=== PATIENT | female | born 1990 | race Caucasian/White ===

== ENCOUNTER 2019-05-31 21:54 | Emergency (ER) | payer SELFPAY ==
[2019-05-31 22:05] VITALS: BP 124/79; PULSE 95; TEMP 98.3; BMI 19.8
[2019-05-31] MEDS ORDERED: IBUPROFEN 600 MG TABLET (FP) PO ONE ×2 (22:21→22:24)
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
== END 2019-05-31 22:26 | disposition home or self-care (01) ==
LOC: FER 21:54
DX: S13.4XXA Sprain of ligaments of cervical spine, initial encounter (principal); V43.52XA Car driver injured in collision with other type car in traffic accident, initial encounter; Y93.89 Activity, other specified; Y92.488 Other paved roadways as the place of occurrence of the external cause; Z88.0 Allergy status to penicillin; Z88.1 Allergy status to other antibiotic agents; Z88.2 Allergy status to sulfonamides
CPT/HCPCS: 99281-25

== ENCOUNTER 2023-07-06 03:10 | Inpatient (IN) | payer BC ==
[2023-07-06] MEDS ORDERED: ACETAMINOPHEN 1000 MG/100 ML BAG IVPB ONE ×2 (04:15→08:10)
[2023-07-06] MEDS ORDERED: LACTATED RINGERS SOLUTION 1,000 ML IV ONE (04:15)
[2023-07-06 06:59] LABS: EPI CELLS 3 /uL (0-25.1); HYALINE CASTS 3 /uL (0-3.1); PH,URINE 6.5 (5.0-8.0); URINE APPEARANCE CLOUDY; URINE BACTERIA 8979 /uL (0-1359); URINE BILIRUBIN NEGATIVE (NEGATIVE); URINE COLOR YELLOW; URINE GLUCOSE (UA) NEGATIVE (NEGATIVE); URINE KETONE NEGATIVE (NEGATIVE); URINE LEUK ESTERASE 2+ (NEGATIVE); URINE NITRITE POSITIVE (NEGATIVE); URINE PROTEIN 2+ (NEGATIVE); URINE RBC 90 /uL (0-23.9); URINE UROBILINOGEN 0.2 mg/dL (0.2-1.0); URINE WBC 4512 /uL (0-25.8)
[2023-07-06] MEDS ORDERED: ELECTROLYTE-148 SOLN 1,000 ML IV SCH (08:00)
[2023-07-06] MEDS ORDERED: ACETAMINOPHEN INJECTION 100 ML IVPB ONE (08:08)
[2023-07-06] MEDS ORDERED: ACETAMINOPHEN 325 MG TABLET (FP) PO PRN (10:13)
[2023-07-06] MEDS ORDERED: oxyCODONE HCL 5 MG TABLET PO PRN (10:13)
[2023-07-06] MEDS: ELECTROLYTE-148 SOLN 1,000 ML IV SCH ×2 (10:40→21:41)
[2023-07-06 11:22] VITALS: BMI 24.3
[2023-07-06 11:46] LABS: BASO % 0.2 % (0-2.0); EOS % 0.1 % (0-4.5); HEMATOCRIT 33.6 % (32.4-45.2); HEMOGLOBIN 10.8 GM/dL (10.7-15.3); LYMPH % 10.3 % (8-40); MCH 29.7 pg (25.7-33.7); MCHC 32.3 g/dl (32.0-36.0); MEAN CELL VOLUME 91.9 fl (80-96); MEAN PLT VOLUME 9.1 fl (7.5-11.1); MONO % 4.9 % (3.8-10.2); NEUT % 84.5 % (42.8-82.8); PLATELET COUNT 227 10^3/uL (134-434); RBC 3.65 M/mm3 (3.60-5.2); RDW 14.3 % (11.6-15.6); WHITE BLOOD COUNT 15.7 K/mm3 (4.0-10.0)
[2023-07-06 12:17] LABS: POTASSIUM 3.7 mmol/L (3.5-5.1)
[2023-07-06 12:19] LABS: ALBUMIN 2.6 g/dl (3.4-5.0)
[2023-07-06 12:21] LABS: BLOOD UREA NITROGEN 6.2 mg/dL (7-18)
[2023-07-06 12:23] LABS: CREATININE 0.5 mg/dL (0.55-1.3)
[2023-07-06 12:24] LABS: BILIRUBIN,TOTAL 0.2 mg/dL (0.2-1); TOT PROT 5.8 g/dl (6.4-8.2)
[2023-07-06] MEDS: AZTREONAM 1 GM in DEXTROSE 5%-WATER - 50 ML IVPB SCH ×2 (12:45→17:56)
[2023-07-07] MEDS: AZTREONAM 1 GM in DEXTROSE 5%-WATER - 50 ML IVPB SCH ×3 (02:02→17:18)
[2023-07-07 09:55] LABS: BASO % 0.5 % (0-2.0); EOS % 0.8 % (0-4.5); HEMATOCRIT 30.8 % (32.4-45.2); HEMOGLOBIN 10.2 GM/dL (10.7-15.3); LYMPH % 18.7 % (8-40); MCHC 33.1 g/dl (32.0-36.0); MEAN CELL VOLUME 90.7 fl (80-96); MEAN PLT VOLUME 9.4 fl (7.5-11.1); MONO % 4.7 % (3.8-10.2); NEUT % 75.3 % (42.8-82.8); PLATELET COUNT 204 10^3/uL (134-434); RBC 3.39 M/mm3 (3.60-5.2); RDW 14.2 % (11.6-15.6); WHITE BLOOD COUNT 13.1 K/mm3 (4.0-10.0)
[2023-07-08] MEDS: ELECTROLYTE-148 SOLN 1,000 ML IV SCH ×2 (00:30→15:00)
[2023-07-08] MEDS: AZTREONAM 1 GM in DEXTROSE 5%-WATER - 50 ML IVPB SCH ×3 (02:00→17:48)
[2023-07-09] MEDS: AZTREONAM 1 GM in DEXTROSE 5%-WATER - 50 ML IVPB SCH ×3 (01:26→18:23)
[2023-07-09] MEDS: ELECTROLYTE-148 SOLN 1,000 ML IV SCH ×2 (05:20→18:23)
[2023-07-09 08:23] LABS: BASO % 0.5 % (0-2.0); EOS % 2.7 % (0-4.5); HEMATOCRIT 30.1 % (32.4-45.2); HEMOGLOBIN 10.3 GM/dL (10.7-15.3); LYMPH % 25.4 % (8-40); MCH 30.9 pg (25.7-33.7); MCHC 34.2 g/dl (32.0-36.0); MEAN CELL VOLUME 90.4 fl (80-96); MEAN PLT VOLUME 9.3 fl (7.5-11.1); MONO % 6.3 % (3.8-10.2); NEUT % 65.1 % (42.8-82.8); PLATELET COUNT 191 10^3/uL (134-434); RBC 3.33 M/mm3 (3.60-5.2); RDW 14.5 % (11.6-15.6); WHITE BLOOD COUNT 9.3 K/mm3 (4.0-10.0)
[2023-07-10] MEDS: AZTREONAM 1 GM in DEXTROSE 5%-WATER - 50 ML IVPB SCH ×3 (02:00→17:12)
[2023-07-10] MEDS: ELECTROLYTE-148 SOLN 1,000 ML IV SCH ×2 (03:30→16:01)
[2023-07-10] MEDS ORDERED: DOCUSATE SODIUM 100 MG CAPSULE (FP) PO PRN (12:27)
[2023-07-11] MEDS: AZTREONAM 1 GM in DEXTROSE 5%-WATER - 50 ML IVPB SCH ×3 (01:31→17:14)
[2023-07-12] MEDS: AZTREONAM 1 GM in DEXTROSE 5%-WATER - 50 ML IVPB SCH ×2 (02:29→09:12)
[2023-07-12 11:37] VITALS: BP 102/68; PULSE 85; RESP 16; TEMP 98.6
== END 2023-07-12 15:35 | disposition home or self-care (01) | DRG 832 ==
LOC: JDEL 03:10 → JLDR 09:55 → J3W 14:26
PROVIDERS: ADMIT Obstetrics & Gynecology; ATTEND Obstetrics & Gynecology
DX: O26.832 Pregnancy related renal disease, second trimester (principal); O23.02 Infections of kidney in pregnancy, second trimester; B96.20 Unspecified Escherichia coli [E. coli] as the cause of diseases classified elsewhere; Z3A.22 22 weeks gestation of pregnancy
CPT/HCPCS: 36415; 36569; 59025; 76775-TC; 76815; 76817-TC; 76856-TC; 80053; 81003; 85025; 87040; 87086; 87186

== ENCOUNTER 2023-07-13 12:40 | Emergency (ER) | payer BC ==
[2023-07-13 13:21] VITALS: RESP 18; TEMP 98.2; BMI 26.1
[2023-07-13] MEDS ORDERED: AZTREONAM 1 GM in DEXTROSE 5%-WATER - 50 ML IVPB ONE (15:54)
[2023-07-13] MEDS ORDERED: AZTREONAM 1 GM VIAL (RESTRICTED TO ID) ONE (16:10)
[2023-07-13 17:15] VITALS: BP 103/64; PULSE 74
== END 2023-07-13 17:22 | disposition home or self-care (01) ==
LOC: JER 12:40
DX: O22.93 Venous complication in pregnancy, unspecified, third trimester (principal); Z3A.23 23 weeks gestation of pregnancy
CPT/HCPCS: 99284-25